=== PATIENT | male | born 1995 | race Caucasian/White ===

== ENCOUNTER 2020-08-07 21:11 | Emergency (ER) | payer OTHER ==
[~2020-08-07] VITALS: Ht 180.3 cm; Wt 79.4 kg
[2020-08-07] MEDS ORDERED: NOHOMEMEDICATIONS (21:46)
[2020-08-07 22:30] VITALS: BP 115/74
== END 2020-08-07 22:30 | disposition home or self-care (01) ==
LOC: ER 21:11
DX: S01.81XA Laceration without foreign body of other part of head, initial encounter (principal); F17.210 Nicotine dependence, cigarettes, uncomplicated; W51.XXXA Accidental striking against or bumped into by another person, initial encounter; Y93.67 Activity, basketball; Y92.89 Other specified places as the place of occurrence of the external cause; Y99.8 Other external cause status

== ENCOUNTER 2020-08-14 09:00 | Emergency (ER) | payer OTHER ==
[~2020-08-14] VITALS: Ht 170.2 cm; Wt 79.4 kg
[~2020-08-14 09:00] MED LIST: NOHOMEMEDICATIONS
[2020-08-14 09:03] VITALS: BP 117/63
== END 2020-08-14 10:05 | disposition home or self-care (01) ==
LOC: ER 09:00
DX: S01.81XD Laceration without foreign body of other part of head, subsequent encounter (principal); F17.210 Nicotine dependence, cigarettes, uncomplicated; X58.XXXD Exposure to other specified factors, subsequent encounter